=== PATIENT | male | born 1965 | race Caucasian/White ===

== ENCOUNTER 2018-04-24 10:39 | Outpatient (CLI) | payer OTHER | END 2018-04-24 10:42 | disposition home or self-care (01) | LOC: EKG 10:39 | DX: Z21 Asymptomatic human immunodeficiency virus [HIV] infection status (principal); E78.2 Mixed hyperlipidemia ==

== ENCOUNTER 2018-04-24 12:06 | Outpatient (CLI) | payer OTHER | END 2018-04-24 12:54 | disposition home or self-care (01) | LOC: RAD 12:06 | DX: E78.2 Mixed hyperlipidemia (principal) ==